=== PATIENT | female | born 1955 | race Caucasian/White ===

== ENCOUNTER 2021-02-10 07:23 | Day surgery (SDC) | payer MEDICARE, OTHER ==
[~2021-02-10] VITALS: Ht 157.5 cm; Wt 73.9 kg
[~2021-02-10 07:23] MED LIST: ACYC-161 PO; ALEN70TA74 PO; DIPH25CA66 PO; FLUT250M2 INH; FURO1TAB31 PO; GABA300C10 PO; HYDR25TA4 PO; LEV50T PO; METO25TA93 PO; OMEP20TA PO; POTA10TA51 PO; PRED10TA PO; SERT50TA PO; TACR5CAP3 PO; [UNRECOGNIZED DRUG - CODE] IV
[2021-02-10] MEDS ORDERED: LIDOCAINE 2%HCL (LOCAL ANESTH.) INJ 20ML MDV ONE (08:40)
[2021-02-10] MEDS ORDERED: IODIXANOL 320MG/ML 100ML BTL IV ONE ×2 (08:40→09:28)
[2021-02-10] MEDS ORDERED: HEPARIN SODIUM (PORCINE) 5000 UNITS/ML 1ML VIAL ONE (08:57)
[2021-02-10] MEDS ORDERED: VERAPAMIL 2.5MG/ML INJ 2ML VIAL IV ONE (08:57)
[2021-02-10] MEDS ORDERED: fentaNYL CITRATE 100 MCG/2 ML VL ONE (08:57)
[2021-02-10] MEDS ORDERED: ANGIOMAX 250 MG VIAL IV ONE (08:57)
[2021-02-10] MEDS ORDERED: MIDAZOLAM HCL 1MG/1ML-2 ML VIAL ONE (08:58)
[2021-02-10] MEDS ORDERED: ACETAMINOPHEN 500 MG TAB PO PRN (10:00)
[2021-02-10] MEDS ORDERED: ONDANSETRON HCL 4 MG/2 ML VIAL IV PRN (10:00)
== END 2021-02-10 12:05 | disposition home or self-care (01) ==
LOC: CATH 07:23
PROVIDERS: ATTEND Internal Medicine Cardiovascular Disease
DX: R07.89 Other chest pain (principal); J45.909 Unspecified asthma, uncomplicated; E03.9 Hypothyroidism, unspecified; E11.9 Type 2 diabetes mellitus without complications; I71.4 Abdominal aortic aneurysm, without rupture; M19.90 Unspecified osteoarthritis, unspecified site; G47.30 Sleep apnea, unspecified; M33.20 Polymyositis, organ involvement unspecified; Z68.29 Body mass index [BMI] 29.0-29.9, adult; Z20.822 Contact with and (suspected) exposure to COVID-19; Z98.890 Other specified postprocedural states
CPT/HCPCS: 93454; C1769; C1887; C1894; J1644; J2250; J3010; Q9967; U0003; 99152; 99153

== ENCOUNTER 2021-12-23 18:45 | Inpatient (IN) | payer MEDICARE, OTHER ==
[2021-12-23] VITALS (17 sets, daily range): BP systolic 102–131; BP diastolic 46–65
[~2021-12-23] VITALS: Ht 157.5 cm; Wt 71.0 kg
[2021-12-23] MEDS ORDERED: NITROGLYCERIN 0.4 MG SL TAB SL PRN (20:00)
[2021-12-23] MEDS ORDERED: ONDANSETRON HCL 4 MG/2 ML VIAL IV PRN (20:15)
[2021-12-23] MEDS: NOREPINEPHRINE 8 MG/250ML KIT 250 ML IV SCH (20:15)
[2021-12-23] MEDS ORDERED: DEXTROSE (50%) 50ML SYRG IV PRN (20:30)
[2021-12-23] MEDS: MORPHINE SULFATE INJECTION 2 MG/ML SYRG IV PRN ×2 (21:11→23:00)
[2021-12-23] MEDS: ATORVASTATIN 20 MG TAB PO SCH (21:11)
[2021-12-23] MEDS: PANTOPRAZOLE 40 MG/10 ML VIAL INJ IV SCH (21:11)
[2021-12-23 21:54] LABS: Urine Bacteria NONE SEEN /hpf (None Seen); Urine Blood Negative /uL (Negative); Urine Specific Gravity 1.017 (1.001-1.035); Urine WBC <1 /hpf (0 - 5)
[2021-12-23] MEDS ORDERED: APIXABAN 5 MG TAB PO SCH (22:00)
[2021-12-23 23:23] LABS: Basophils # (auto) 0 10 ^3/uL (0-0.2); Basophils % (auto) 0.3 % (0.0-2.0); Eosinophils # (auto) 0 10 ^3/uL (0-0.8); Eosinophils % (auto) 0.5 % (0.0-7.0); Hematocrit 23.5 % (36.0-46.0); Hemoglobin 8.1 g/dL (12.2-16.2); Lymphocytes % (auto) 14.5 % (10.0-50.0); Mean Corpuscular Hemoglobin 34.8 pg (28.0-32.0); Mean Corpuscular Hgb Conc. 34.7 g/dL (32.0-36.0); Mean Corpuscular Volume 100.4 fL (80.0-100.0); Neutrophils % (auto) 70.7 % (37.0-80.0); Nucleated Red Blood Cells % 0.4 %; Red Blood Cells 2.34 10^6/uL (4.0-5.20); Red Cell Distribution Width 17.2 % (11.8-14.3); White Blood Cell 7.1 10^3/uL (4.4-10.8)
[2021-12-24] VITALS (21 sets, daily range): BP systolic 105–143; BP diastolic 47–72
[2021-12-24] MEDS ORDERED: MORPHINE SULFATE INJECTION 2 MG/ML SYRG IV PRN
[2021-12-24] MEDS: HYDROcodone-ACET 10/325MG TAB PO PRN ×3 (00:19→23:40)
[2021-12-24] MEDS: ACCU-CHEK COMFORT CURVE STRIP VI SCH ×5 (00:20→23:41)
[2021-12-24] MEDS: SODIUM CHLORIDE 0.9% 1,000 ML IV SCH ×3 (01:00→17:15)
[2021-12-24 04:25] LABS: Basophils # (auto) 0.1 10 ^3/uL (0-0.2); Basophils % (auto) 0.8 % (0.0-2.0); Eosinophils # (auto) 0.1 10 ^3/uL (0-0.8); Eosinophils % (auto) 1.8 % (0.0-7.0); Hematocrit 26.9 % (36.0-46.0); Hemoglobin 9.4 g/dL (12.2-16.2); Lymphocytes # (auto) 1.2 10 ^3/uL (0.4-5.4); Lymphocytes % (auto) 15.3 % (10.0-50.0); Mean Corpuscular Hemoglobin 33.8 pg (28.0-32.0); Mean Corpuscular Hgb Conc. 34.9 g/dL (32.0-36.0); Mean Corpuscular Volume 96.8 fL (80.0-100.0); Monocytes # (auto) 1.3 10 ^3/uL (0-1.3); Monocytes % (auto) 16.6 % (0.0-12.0); Neutrophils % (auto) 65.5 % (37.0-80.0); Nucleated Red Blood Cells % 0.2 %; Red Blood Cells 2.78 10^6/uL (4.0-5.20); Red Cell Distribution Width 17.3 % (11.8-14.3); White Blood Cell 7.6 10^3/uL (4.4-10.8)
[2021-12-24 04:52] LABS: Albumin 2.2 g/dL (3.4-5.0); BUN/Creatinine Ratio 8.8; Calcium 7.8 mg/dL (8.5-10.1); Potassium 3.4 mmol/L (3.5-5.1)
[2021-12-24 04:55] LABS: Bilirubin, Total 0.8 mg/dL (0.2-1.0)
[2021-12-24] MEDS: SUCRALFATE 1 GM/10 ML ORAL SUSP GT SCH ×2 (06:15→17:15)
[2021-12-24] MEDS: LEVOTHYROXINE SODIUM 25 MCG TAB PO SCH (06:16)
[2021-12-24] MEDS: InsuLIN REG 1unit/0.01ml Soln (100units/ml) SC SCH ×5 (06:22→23:41)
[2021-12-24] MEDS: METOPROLOL SUCCINATE XL 50 MG TAB PO SCH (09:06)
[2021-12-24] MEDS: HCTZ 25 MG TAB PO SCH (09:07)
[2021-12-24] MEDS: SERTRALINE HCL 50 MG TAB PO SCH (09:07)
[2021-12-24] MEDS: predniSONE 5 MG TAB PO SCH (09:07)
[2021-12-24] MEDS: FUROSEMIDE 40 MG/4 ML VIAL IV SCH (09:08)
[2021-12-24] MEDS: PANTOPRAZOLE 40 MG/10 ML VIAL INJ IV SCH ×2 (09:08→21:24)
[2021-12-24] MEDS: ENOXAPARIN SOD 100 MG/1 ML SYRINGE SC SCH ×2 (09:08→21:25)
[2021-12-24] MEDS: MORPHINE SULFATE INJECTION 2 MG/ML SYRG IV PRN ×2 (09:28→15:26)
[2021-12-24] MEDS: NOREPINEPHRINE 8 MG/250ML KIT 250 ML IV SCH (20:15)
[2021-12-24] MEDS: ATORVASTATIN 20 MG TAB PO SCH (21:25)
[2021-12-25] VITALS (24 sets, daily range): BP systolic 98–153; BP diastolic 52–70
[2021-12-25] MEDS: SODIUM CHLORIDE 0.9% 1,000 ML IV SCH ×3 (01:00→17:00)
[2021-12-25] MEDS: MORPHINE SULFATE INJECTION 2 MG/ML SYRG IV PRN ×3 (04:02→16:50)
[2021-12-25] MEDS: InsuLIN REG 1unit/0.01ml Soln (100units/ml) SC SCH ×3 (06:00→17:20)
[2021-12-25] MEDS: ACCU-CHEK COMFORT CURVE STRIP VI SCH ×3 (06:14→17:54)
[2021-12-25] MEDS: LEVOTHYROXINE SODIUM 25 MCG TAB PO SCH (06:26)
[2021-12-25] MEDS: SUCRALFATE 1 GM/10 ML ORAL SUSP GT SCH ×2 (07:32→17:12)
[2021-12-25 08:15] LABS: Calcium 7.8 mg/dL (8.5-10.1); Potassium 3.3 mmol/L (3.5-5.1)
[2021-12-25 08:16] LABS: Basophils # (auto) 0.1 10 ^3/uL (0-0.2); Basophils % (auto) 0.8 % (0.0-2.0); Eosinophils # (auto) 0.2 10 ^3/uL (0-0.8); Eosinophils % (auto) 3.1 % (0.0-7.0); Hematocrit 27.2 % (36.0-46.0); Hemoglobin 9.5 g/dL (12.2-16.2); Lymphocytes # (auto) 1.5 10 ^3/uL (0.4-5.4); Lymphocytes % (auto) 18.4 % (10.0-50.0); Mean Corpuscular Hemoglobin 33.3 pg (28.0-32.0); Mean Corpuscular Hgb Conc. 34.8 g/dL (32.0-36.0); Mean Corpuscular Volume 95.6 fL (80.0-100.0); Monocytes # (auto) 1.4 10 ^3/uL (0-1.3); Monocytes % (auto) 17.1 % (0.0-12.0); Neutrophils # (auto) 4.8 10 ^3/uL (1.6-8.6); Neutrophils % (auto) 60.6 % (37.0-80.0); Nucleated Red Blood Cells % 0.1 %; Red Blood Cells 2.85 10^6/uL (4.0-5.20); Red Cell Distribution Width 16.8 % (11.8-14.3); White Blood Cell 7.9 10^3/uL (4.4-10.8)
[2021-12-25 08:17] LABS: Bilirubin, Total 0.5 mg/dL (0.2-1.0); Total Protein 6.1 g/dL (6.4-8.2)
[2021-12-25] MEDS: ENOXAPARIN SOD 100 MG/1 ML SYRINGE SC SCH ×2 (09:19→21:19)
[2021-12-25] MEDS: predniSONE 5 MG TAB PO SCH (09:20)
[2021-12-25] MEDS: PANTOPRAZOLE 40 MG/10 ML VIAL INJ IV SCH ×2 (09:20→21:19)
[2021-12-25] MEDS: FUROSEMIDE 40 MG/4 ML VIAL IV SCH (09:20)
[2021-12-25] MEDS: METOPROLOL SUCCINATE XL 50 MG TAB PO SCH (09:21)
[2021-12-25] MEDS: SERTRALINE HCL 50 MG TAB PO SCH (09:21)
[2021-12-25] MEDS: HCTZ 25 MG TAB PO SCH (09:21)
[2021-12-25] MEDS ORDERED: POTASSIUM EFFERVESENT TAB 25 MEQ PO ONE (09:30)
[2021-12-25] MEDS: NOREPINEPHRINE 8 MG/250ML KIT 250 ML IV SCH (20:15)
[2021-12-25] MEDS: ATORVASTATIN 20 MG TAB PO SCH (21:19)
[2021-12-26] VITALS (23 sets, daily range): BP systolic 95–140; BP diastolic 43–70
[2021-12-26] MEDS: ACCU-CHEK COMFORT CURVE STRIP VI SCH ×5 (00:02→23:46)
[2021-12-26] MEDS: SODIUM CHLORIDE 0.9% 1,000 ML IV SCH ×3 (01:00→17:00)
[2021-12-26 04:36] LABS: Basophils # (auto) 0 10 ^3/uL (0-0.2); Lymphocytes # (auto) 1.3 10 ^3/uL (0.4-5.4); Nucleated Red Blood Cells % 0.1 %
[2021-12-26 04:39] LABS: Basophils % (auto) 0.6 % (0.0-2.0); Eosinophils # (auto) 0.2 10 ^3/uL (0-0.8); Eosinophils % (auto) 2.4 % (0.0-7.0); Hematocrit 24.4 % (36.0-46.0); Hemoglobin 8.6 g/dL (12.2-16.2); Lymphocytes % (auto) 17.3 % (10.0-50.0); Mean Corpuscular Hemoglobin 34.9 pg (28.0-32.0); Mean Corpuscular Hgb Conc. 35.3 g/dL (32.0-36.0); Monocytes % (auto) 13.6 % (0.0-12.0); Neutrophils # (auto) 5.1 10 ^3/uL (1.6-8.6); Neutrophils % (auto) 66.1 % (37.0-80.0); Red Blood Cells 2.47 10^6/uL (4.0-5.20); Red Cell Distribution Width 16.9 % (11.8-14.3); White Blood Cell 7.7 10^3/uL (4.4-10.8)
[2021-12-26] MEDS: InsuLIN REG 1unit/0.01ml Soln (100units/ml) SC SCH ×5 (06:00→23:46)
[2021-12-26] MEDS: SUCRALFATE 1 GM/10 ML ORAL SUSP GT SCH ×2 (06:15→17:35)
[2021-12-26] MEDS: LEVOTHYROXINE SODIUM 25 MCG TAB PO SCH (06:15)
[2021-12-26 08:29] LABS: Albumin 1.6 g/dL (3.4-5.0); Calcium 6.3 mg/dL (8.5-10.1)
[2021-12-26 08:32] LABS: BUN/Creatinine Ratio 20.5; Bilirubin, Total 0.3 mg/dL (0.2-1.0); Total Protein 4.8 g/dL (6.4-8.2)
[2021-12-26 08:37] LABS: Potassium 2.9 mmol/L (3.5-5.1)
[2021-12-26] MEDS ORDERED: POTASSIUM EFFERVESENT TAB 25 MEQ PO ONE (09:45)
[2021-12-26] MEDS: predniSONE 5 MG TAB PO SCH (09:53)
[2021-12-26] MEDS: FUROSEMIDE 40 MG/4 ML VIAL IV SCH (09:53)
[2021-12-26] MEDS: SERTRALINE HCL 50 MG TAB PO SCH (09:53)
[2021-12-26] MEDS: HCTZ 25 MG TAB PO SCH (09:54)
[2021-12-26] MEDS: ENOXAPARIN SOD 100 MG/1 ML SYRINGE SC SCH ×2 (09:55→21:52)
[2021-12-26] MEDS: METOPROLOL SUCCINATE XL 50 MG TAB PO SCH (09:55)
[2021-12-26] MEDS: PANTOPRAZOLE 40 MG/10 ML VIAL INJ IV SCH ×2 (09:55→21:52)
[2021-12-26] MEDS: MORPHINE SULFATE INJECTION 2 MG/ML SYRG IV PRN (11:33)
[2021-12-26] MEDS: POTASSIUM CHL 20MEQ/100ML 100 ML IV SCH ×2 (13:52→14:53)
[2021-12-26 14:39] LABS: Partial Thromboplastin Time 28.6 sec (23.6-33.0)
[2021-12-26] MEDS: NOREPINEPHRINE 8 MG/250ML KIT 250 ML IV SCH (20:15)
[2021-12-26] MEDS: ATORVASTATIN 20 MG TAB PO SCH (21:52)
[2021-12-26] MEDS: HYDROcodone-ACET 10/325MG TAB PO PRN (23:43)
[2021-12-27] VITALS (10 sets, daily range): BP systolic 104–133; BP diastolic 53–78
[2021-12-27] MEDS: SODIUM CHLORIDE 0.9% 1,000 ML IV SCH ×3 (01:00→17:27)
[2021-12-27 04:23] LABS: Albumin 1.8 g/dL (3.4-5.0); Calcium 6.6 mg/dL (8.5-10.1); Potassium 3.3 mmol/L (3.5-5.1)
[2021-12-27 04:26] LABS: BUN/Creatinine Ratio 23.5; Bilirubin, Total 0.3 mg/dL (0.2-1.0); Total Protein 5.2 g/dL (6.4-8.2)
[2021-12-27] MEDS: InsuLIN REG 1unit/0.01ml Soln (100units/ml) SC SCH ×4 (06:00→23:19)
[2021-12-27] MEDS: LEVOTHYROXINE SODIUM 25 MCG TAB PO SCH (06:09)
[2021-12-27] MEDS: SUCRALFATE 1 GM/10 ML ORAL SUSP GT SCH ×2 (06:12→17:27)
[2021-12-27] MEDS: ACCU-CHEK COMFORT CURVE STRIP VI SCH ×4 (06:12→23:19)
[2021-12-27] MEDS ORDERED: fentaNYL CITRATE 100 MCG/2 ML VL ONE (08:39)
[2021-12-27] MEDS ORDERED: LIDOCAINE VISCOUS 2% 15ML UD ONE (08:39)
[2021-12-27] MEDS ORDERED: diphenhdrAMINE HCL 50 MG/1 ML VL ONE (08:39)
[2021-12-27] MEDS ORDERED: MIDAZOLAM HCL 5 MG/ML-1ML VIAL ONE (08:39)
[2021-12-27] MEDS: ENOXAPARIN SOD 100 MG/1 ML SYRINGE SC SCH (10:00)
[2021-12-27] MEDS: HYDROcodone-ACET 10/325MG TAB PO PRN (11:28)
[2021-12-27] MEDS: METOPROLOL SUCCINATE XL 50 MG TAB PO SCH (11:51)
[2021-12-27] MEDS ORDERED: HYDR-4798 PO (16:08)
[2021-12-27] MEDS ORDERED: SUCR1TAB PO (16:08)
[2021-12-27] MEDS ORDERED: ATOR20TA50 PO (16:08)
[2021-12-27] MEDS ORDERED: PANT40TA2 PO (16:08)
[2021-12-27] MEDS: FUROSEMIDE 40 MG/4 ML VIAL IV SCH (17:25)
[2021-12-27] MEDS: PANTOPRAZOLE 40 MG/10 ML VIAL INJ IV SCH ×2 (17:25→21:03)
[2021-12-27] MEDS: HCTZ 25 MG TAB PO SCH (17:26)
[2021-12-27] MEDS: predniSONE 5 MG TAB PO SCH (17:26)
[2021-12-27] MEDS: POTASSIUM EFFERVESENT TAB 25 MEQ PO SCH (17:26)
[2021-12-27] MEDS: SERTRALINE HCL 50 MG TAB PO SCH (17:27)
[2021-12-27] MEDS: ATORVASTATIN 20 MG TAB PO SCH (21:03)
[2021-12-27] MEDS ORDERED: ENOXAPARIN SOD 80 MG/0.8ML SYRINGE SC SCH (22:00)
[2021-12-28] MEDS: SODIUM CHLORIDE 0.9% 1,000 ML IV SCH ×2 (03:28→12:31)
[2021-12-28 05:10] VITALS: BP 141/68
[2021-12-28] MEDS: ACCU-CHEK COMFORT CURVE STRIP VI SCH ×2 (05:38→12:30)
[2021-12-28] MEDS: InsuLIN REG 1unit/0.01ml Soln (100units/ml) SC SCH ×2 (05:39→12:00)
[2021-12-28] MEDS: SUCRALFATE 1 GM/10 ML ORAL SUSP GT SCH ×2 (05:39→16:50)
[2021-12-28] MEDS: LEVOTHYROXINE SODIUM 25 MCG TAB PO SCH (05:39)
[2021-12-28 05:51] LABS: Basophils # (auto) 0.1 10 ^3/uL (0-0.2); Basophils % (auto) 0.5 % (0.0-2.0); Eosinophils # (auto) 0.1 10 ^3/uL (0-0.8); Eosinophils % (auto) 1.2 % (0.0-7.0); Hematocrit 30.8 % (36.0-46.0); Hemoglobin 10.7 g/dL (12.2-16.2); Lymphocytes # (auto) 1.7 10 ^3/uL (0.4-5.4); Lymphocytes % (auto) 17.1 % (10.0-50.0); Mean Corpuscular Hemoglobin 33.6 pg (28.0-32.0); Mean Corpuscular Hgb Conc. 34.6 g/dL (32.0-36.0); Mean Corpuscular Volume 97.2 fL (80.0-100.0); Neutrophils # (auto) 6.9 10 ^3/uL (1.6-8.6); Neutrophils % (auto) 71.2 % (37.0-80.0); Nucleated Red Blood Cells % 0.1 %; Red Blood Cells 3.17 10^6/uL (4.0-5.20); Red Cell Distribution Width 16.5 % (11.8-14.3); White Blood Cell 9.7 10^3/uL (4.4-10.8)
[2021-12-28 06:06] LABS: Calcium 8.5 mg/dL (8.5-10.1); Potassium 3.9 mmol/L (3.5-5.1)
[2021-12-28 09:00] VITALS: BP 118/52
[2021-12-28] MEDS: PANTOPRAZOLE 40 MG/10 ML VIAL INJ IV SCH (09:37)
[2021-12-28] MEDS: FUROSEMIDE 40 MG/4 ML VIAL IV SCH (09:38)
[2021-12-28] MEDS: POTASSIUM EFFERVESENT TAB 25 MEQ PO SCH (09:39)
[2021-12-28] MEDS: HCTZ 25 MG TAB PO SCH (09:39)
[2021-12-28] MEDS: SERTRALINE HCL 50 MG TAB PO SCH (09:39)
[2021-12-28] MEDS: METOPROLOL SUCCINATE XL 50 MG TAB PO SCH (09:39)
[2021-12-28] MEDS: predniSONE 5 MG TAB PO SCH (09:40)
[2021-12-28] MEDS: HYDROcodone-ACET 10/325MG TAB PO PRN (09:41)
[2021-12-28] MEDS ORDERED: APIXABAN 2.5 MG TAB PO SCH (10:00)
[2021-12-28 13:00] VITALS: BP 124/69
[2021-12-28] MEDS ORDERED: APIX2.5T PO (13:11)
[2021-12-28] MEDS ORDERED: SUCR1TAB22 OR (13:15)
[2021-12-28] MEDS ORDERED: PANT40TA2 PO (13:15)
[2021-12-28] MEDS ORDERED: HYDR-4798 PO (13:15)
[2021-12-28] MEDS ORDERED: ATOR20TA50 PO (13:15)
[2021-12-28 16:50] VITALS: BP 124/79
== END 2021-12-28 17:57 | disposition home or self-care (01) | DRG 280 ==
LOC: TELE 18:45 → ICU WEST 18:50 → TELE-WESTW 12-27 07:37
PROVIDERS: ADMIT Specialist; ATTEND Internal Medicine
PROC: 30233N1 Transfusion of Nonautologous Red Blood Cells into Peripheral Vein, Percutaneous Approach (ICD-10-PCS; principal; 2021-12-23)
PROC: 0DB98ZX Excision of Duodenum, Via Natural or Artificial Opening Endoscopic, Diagnostic (ICD-10-PCS; 2021-12-27)
PROC: 0DB48ZX Excision of Esophagogastric Junction, Via Natural or Artificial Opening Endoscopic, Diagnostic (ICD-10-PCS; 2021-12-27)
PROC: 0DB68ZX Excision of Stomach, Via Natural or Artificial Opening Endoscopic, Diagnostic (ICD-10-PCS; 2021-12-27)
DX: I21.4 Non-ST elevation (NSTEMI) myocardial infarction (principal); K85.90 Acute pancreatitis without necrosis or infection, unspecified; E43 Unspecified severe protein-calorie malnutrition; M33.20 Polymyositis, organ involvement unspecified; K22.10 Ulcer of esophagus without bleeding; D63.8 Anemia in other chronic diseases classified elsewhere; I48.91 Unspecified atrial fibrillation; E03.9 Hypothyroidism, unspecified; E78.5 Hyperlipidemia, unspecified; E11.40 Type 2 diabetes mellitus with diabetic neuropathy, unspecified; K29.70 Gastritis, unspecified, without bleeding; K25.9 Gastric ulcer, unspecified as acute or chronic, without hemorrhage or perforation; K44.9 Diaphragmatic hernia without obstruction or gangrene; Z20.822 Contact with and (suspected) exposure to COVID-19; Z90.49 Acquired absence of other specified parts of digestive tract; I50.9 Heart failure, unspecified; J44.9 Chronic obstructive pulmonary disease, unspecified; M19.90 Unspecified osteoarthritis, unspecified site; I11.0 Hypertensive heart disease with heart failure; Z68.28 Body mass index [BMI] 28.0-28.9, adult
CPT/HCPCS: 36415; 43239; 80048; 80053; 80061; 81001; 82150; 82270; 82962; 83690; 83880; 84443; 84484; 85025; 85610; 85730; 86850; 86900; 86901; 86920; 87081; 93005; 93306; C9113; G0378; J1815; J2250; J2405; J3480